=== PATIENT | male | born 1995 | race Caucasian/White ===

== ENCOUNTER 2020-03-16 22:38 | Inpatient (IN) ==
[2020-03-16] MEDS ORDERED: Aspirin 325 MG TABLET PO ONE (22:59)
[2020-03-16] MEDS ORDERED: *HR* Heparin 5,000 UNIT/ML VIAL ONE (23:02)
[2020-03-16] MEDS ORDERED: *HR* Ticagrelor 90 MG TABLET ONE (23:02)
[2020-03-16] MEDS ORDERED: Aspirin 81 MG TAB.CHEW ONE (23:02)
[2020-03-16 23:03] LABS: Basophils # 0.1 K/mcL (0.0-0.2); Basophils % 0.4 %; Eosinophils # 0.1 K/mcL (0.0-0.6); Eosinophils % 0.4 %; Hemoglobin 17.1 g/dL (12.9-16.9); Immature Granulocytes % 0.4 % (0-4); Lymphocytes # 2.5 K/mcL (0.6-4.6); Lymphocytes % 15.1 %; Mean Corpuscular HGB Conc 34.2 g/dL (31.6-35.5); Mean Corpuscular Hemoglobin 30.2 pg (28.0-33.3); Mean Corpuscular Volume 88.2 fL (83.0-100.0); Mean Platelet Volume 8.9 fL (9.4-12.4); Monocytes # 1.1 K/mcL (0.0-1.3); Monocytes % 6.7 %; Neutrophils # 12.5 K/mcL (1.6-8.9); Platelet Count 348 K/mcL (140-400); Red Blood Count 5.67 M/mcL (4.19-5.50); Red Cell Distribution Width 12.1 % (11.5-14.5); White Blood Count 16.3 K/mcL (4.3-11.1)
[2020-03-16] MEDS ORDERED: 0.9 % Sodium Chloride 1,000 ML ONE ×2 (23:03→23:32)
[2020-03-16] MEDS ORDERED: *HR* Ticagrelor 90 MG TABLET PO ONE (23:10)
[2020-03-16] MEDS ORDERED: *HR* Heparin 5,000 UNIT/ML VIAL IVP ONE (23:11)
[2020-03-16] MEDS: Aspirin 81 MG TAB.CHEW PO SCH (23:15)
[2020-03-16 23:28] LABS: Alanine Aminotransferase 42 Units/L (7-52); Albumin 4.6 g/dL (3.5-5.7); Albumin/Globulin Ratio 1.5 (1.1-2.2); Alkaline Phosphatase 90 Units/L (34-104); Aspartate Amino Transferase 27 Units/L (13-39); BUN/Creatinine Ratio 14 (6-26); Bilirubin,Total 0.8 mg/dL (0.3-1.0); Blood Urea Nitrogen 15 mg/dL (6-20); Calcium 9.8 mg/dL (8.6-10.3); Carbon Dioxide 25 mEq/L (23-29); Chloride 103 mEq/L (98-107); Globulin 3.1 g/dL (2.4-3.5); Glucose 107 mg/dL (70-105); Osmolality,Calculated 287 (280-300); Potassium 4.1 mEq/L (3.5-5.1); Sodium 138 mEq/L (136-145); Total Protein 7.7 g/dL (6.4-8.9); eGFR For African Americans > 60 (> 60); eGFR For Non-African Americans > 60 (> 60)
[2020-03-16 23:29] LABS: Troponin I < 0.03 ng/mL (< 0.04)
[2020-03-16] MEDS ORDERED: Heparin 1,000 UNITS/500 mL 500 ML ONE (23:32)
[2020-03-16] MEDS ORDERED: *HR* Bivalirudin 250 MG VIAL IVC ONE (23:32)
[2020-03-16] MEDS ORDERED: Nitroglycerin 1,000 MCG/10 ML VIAL IV ONE (23:33)
[2020-03-16] MEDS ORDERED: *HR* Heparin 10,000 UNIT/10 ML VIAL ONE (23:33)
[2020-03-16] MEDS ORDERED: ISOVUE-370 200 ML INFUS..BTL ONE (23:33)
[2020-03-16] MEDS ORDERED: *HR* FentaNYL (PF) 100 MCG/2 ML VIAL ONE (23:44)
[2020-03-16] MEDS ORDERED: *HR* Midazolam HCl 2 MG/2 ML VIAL ONE (23:44)
[2020-03-17 00:19] LABS: Adenovirus Not Detected (Not Detect); Bordetella Pertussis Not Detected (Not Detect); Chlamydophila pneumoniae Not Detected (Not Detect); Coronavirus 229E Not Detected (Not Detect); Coronavirus HKU1 Not Detected (Not Detect); Coronavirus NL63 Not Detected (Not Detect); Coronavirus OC43 Not Detected (Not Detect); Human Metapneumovirus Not Detected (Not Detect); Human Rhinovirus/Enterovirus Not Detected (Not Detect); Influenza A Subtype 2009 H1 Not Detected (Not Detect); Influenza B Not Detected (Not Detect); Mycoplasma pneumoniae Not Detected (Not Detect); Parainfluenza Virus 1 Not Detected (Not Detect); Parainfluenza Virus 2 Not Detected (Not Detect); Parainfluenza Virus 3 Not Detected (Not Detect); Parainfluenza Virus 4 Not Detected (Not Detect); Respiratory Syncytial Virus Not Detected (Not Detect); SARS-CoV-2 Not Detected (Not Detect)
[2020-03-17] MEDS ORDERED: Acetaminophen 325 MG TABLET PO PRN (00:28)
[2020-03-17] MEDS ORDERED: 0.9 % Sodium Chloride 1,000 ML IVC SCH (00:30)
[2020-03-17] MEDS ORDERED: Perflutren Lipid Microsphere 1.3 ML in 0.9 % Sodium Chloride 8.7 ML IVP PRN (00:36)
[2020-03-17] MEDS ORDERED: Isovue-370 500 ML BOTTLE IVP ONE (00:37)
[2020-03-17 01:47] LABS: Basophils # 0.1 K/mcL (0.0-0.2); Basophils % 0.4 %; Eosinophils % 0.2 %; Hematocrit 47.4 % (37.5-50.1); Hemoglobin 16.3 g/dL (12.9-16.9); Immature Granulocytes % 0.6 % (0-4); Lymphocytes # 1.8 K/mcL (0.6-4.6); Lymphocytes % 13.1 %; Mean Corpuscular HGB Conc 34.4 g/dL (31.6-35.5); Mean Corpuscular Hemoglobin 30.4 pg (28.0-33.3); Mean Corpuscular Volume 88.3 fL (83.0-100.0); Monocytes # 0.8 K/mcL (0.0-1.3); Monocytes % 5.9 %; Neutrophils # 11.2 K/mcL (1.6-8.9); Platelet Count 315 K/mcL (140-400); Red Blood Count 5.37 M/mcL (4.19-5.50); Segmented Neutrophils % 79.8 %
[2020-03-17 02:00] LABS: BUN/Creatinine Ratio 13 (6-26); Blood Urea Nitrogen 15 mg/dL (6-20); Calcium 9.4 mg/dL (8.6-10.3); Carbon Dioxide 24 mEq/L (23-29); Chloride 104 mEq/L (98-107); Chol/HDL Ratio 6.2 (0-4.9); Cholesterol 204 mg/dL (< 200); Glucose 93 mg/dL (70-105); HDL Cholesterol 33 mg/dL (40-59); Osmolality,Calculated 281 (280-300); Potassium 4.3 mEq/L (3.5-5.1); Sodium 135 mEq/L (136-145); Triglycerides 426 mg/dL (< 150); eGFR For African Americans > 60 (> 60); eGFR For Non-African Americans > 60 (> 60)
[2020-03-17 02:15] LABS: LDL Cholesterol,Direct 146 mg/dL (75-193)
[2020-03-17 06:59] VITALS: BP 138/96
[2020-03-17] MEDS: Aspirin 81 MG TAB.CHEW PO SCH (07:33)
[2020-03-17 07:35] LABS: Estimated Average Glucose 126 mg/dl
[2020-03-17] MEDS ORDERED: lisinopriL 5 MG TABLET PO SCH (09:00)
[2020-03-17] MEDS ORDERED: amLODIPine 5 MG TABLET PO SCH (09:00)
== END 2020-03-17 09:49 | disposition home or self-care (01) | DRG 287 ==
LOC: 2ANU 22:38 → EMEROOARM 22:38 → 2ANU 23:47
PROVIDERS: ADMIT Internal Medicine Interventional Cardiology; ATTEND Internal Medicine Interventional Cardiology